=== PATIENT | female | born 2000 | race Caucasian/White ===

== ENCOUNTER 2021-11-13 15:03 | Emergency (ER) | payer BC ==
[2021-11-13] MEDS ORDERED: TYLENOL EXTRA STRENGTH 500 MG ONE (16:18)
[2021-11-13] MEDS: TYLENOL EXTRA STRENGTH 500 MG PO ONE (16:19)
[2021-11-13 16:28] LABS: Bacteria RARE /HPF (NEGATIVE); Epithelial Cells RARE /HPF (FEW); RBC 0-2 /HPF (0-2)
[2021-11-13 16:31] LABS: Appearance SLIGHTLY CLOUDY (CLEAR); Bilirubin NEGATIVE (NEGATIVE); Glucose NEGATIVE (NEGATIVE); Ketones NEGATIVE (NEGATIVE); Nitrite NEGATIVE (NEGATIVE); Ph 7.5 (5-6); Protein,Urine Dip 30 (Negative); RBC TRACE-INTACT Ery/ul (0-5); Urobilinogen 1 mg/dL (0-1)
[2021-11-13 16:32] LABS: Dipstick done @ ? MAIN LAB; Urine Cultured Indicated? YES
[2021-11-13 16:51] LABS: Absolute Neutrophil Ct (ANC) 8.55 x10^3/uL (1.4-6.9); Basophil (Absolute #) 0.05 x10^3/uL (0-0.4); Eosinophil % 0.9 % (0.00-5.0); Eosinophil (Absolute #) 0.12 x10^3/uL (0-0.5); Hematocrit 41.7 % (35-47); Hemoglobin 13.8 g/dL (12.0-16.0); Lymphocyte (Absolute #) 3.34 x10^3/uL (1.0-4.6); Lymphocytes % 26.3 % (24.0-44.0); Mean Cell Volume 85.8 fL (78-100); Mean Corpuscular Hemoglobin 28.4 pg (26-32); Mean Corpuscular Hgb Concent. 33.1 g/dL (32-36); Mean Platelet Volume 8.5 fL (7.5-11.0); Monocyte (Absolute #) 0.61 x10^3/uL (0.0-1.3); Monocytes % 4.8 % (0.0-12.0); Neutrophil % 67.3 % (36.0-66.0); Platelet Count 337 x10^3/uL (150-450); Red Blood Count 4.86 x10^6/uL (4.1-5.4); White Blood Count 12.7 x10^3/uL (4.0-10.5)
[2021-11-13 17:03] LABS: ALBUMIN 4.8 g/dL (3.5-5.0); ALKALINE PHOSPHATASE 109 U/L (38-126); ANION GAP 15.3 MEQ/L (5-15); BLOOD UREA NITROGEN 9 mg/dL (7-17); CHLORIDE 101 mmol/L (98-107); Calcium 9.5 mg/dL (8.4-10.2); Carbon Dioxide 24 mmol/L (22-30); EST GLOMERULAR FILTRATION RATE > 60.0 ML/MIN; Glucose 105 mg/dL (74-106); Potassium 4.1 mmol/L (3.5-5.1); SGOT/AST 29 U/L (14-36); SGPT/ALT 24 U/L (0-35); SODIUM 136 mmol/L (137-145); Total Protein 8.6 g/dL (6.3-8.2)
--- NOTE | 2021-11-13 17:26 | XRAY ---
Indication: Pelvic pain. Two-dimensional transabdominal pelvic sonogram performed. Comparison: None Uterus anteverted measuring 8.0 x 3.6 x 4.7 cm. No focal solid/cystic uterine mass. Endometrial stripe measures 1.1 cm. No endometrial cavity mass or fluid collection. Right ovary measures 3.9 x 2.2 x 2.8 cm and the left measures 3.6 x 1.9 x 3.3 cm. Normal perfusion bilaterally. No suspicious adnexal mass or free fluid. Impression: Prominent endometrial stripe. Correlate with patient's menstrual cycle. Remaining transabdominal pelvic sonogram is negative.
--- NOTE | 2021-11-13 17:28 | XRAY ---
Indication: Pelvic pain. Two-dimensional transvaginal pelvic sonogram performed. Comparison: None Uterus anteverted measuring 7.4 x 3.8 x 4.2 cm. Lower uterine segment demonstrates 7 mm nabothian cyst. No other focal solid/cystic uterine mass. Endometrial stripe measures 1.1 cm. No endometrial cavity mass or fluid collection. Right ovary measures 4.2 x 3.1 x 4.6 cm and the left measures 3.6 x 2.4 x 3.4 cm. Normal perfusion and follicular cysts bilaterally. Right ovary demonstrates dominant 3.2 cm cyst. No suspicious adnexal mass. Tiny cul-de-sac free fluid presumed physiologic from rupture/leaking cyst. Impression: Prominent endometrial stripe. Correlate with patient's menstrual cycle. Incidental tiny nabothian cyst and tiny physiologic cul-de-sac fluid.
--- NOTE | 2021-11-13 17:52 | ERPHSYRPT ---
- History of Present Illness Historian: patient Exam Limitations: no limitations Patient Subjective Stated Complaint: pt states that it hurts from her panty line and shoots pains to her vagina Triage Nursing Assessment: Pt brought self to the ER, tachycardic, hypertensive, rates pain as 8/10 when she is standing and 3/10 when she is sitting, pt had a HSG procedure done October 29 and states that the pain feels like she is having another procedure like that, she states that she has cysts on her ovaries, she woke up today feeling like she was having menstrual cramps and then later at work she began having diarrhea and then the pain got worse, denies pain with palpatation to the pelvic area except for right above her pubic symphisis, last period was 10/18-10/22, denies blood in urine or stool Physician History: 21 yo wf w supra-pubic pain x 2 days. pain described as "cramping" and 8/10. Pain worse w movement and upright position. She denies vaginal bleeding/dysuria/hematuria. Pt can not confirm or deny . She has never had the pain before. Pt has also had nausea/mild diarrhea. Cough/coryza/fever all denied. Timing/Duration: day(s) (2 days) Activities at Onset: rest Quality: cramping Abdominal Pain Onset Location: suprapubic Pain Radiation: no radiation Severity of Pain-Max: severe Severity of Pain-Current: severe Modifying Factors: Improves With: movement (Makes worse) Associated Symptoms: diarrhea, nausea, No back, No chest pain, No diaphoresis, No fever/chills, No fatigue, No headache, No heartburn, No loss of appetite, No neck pain, No rash, No shortness of breath, No syncope, No vomiting, No weakness Previous symptoms: no prior history Allergies/Adverse Reactions: No Known Drug Allergies Allergy (Verified 11/13/21 15:51) Hx Influenza Vaccination/Date Given: Yes Hx Pneumococcal Vaccination/Date Given: Yes Immunizations Up to Date: Yes Travel Risk - International Travel Have you traveled outside of the country in past 3 weeks: No - Coronavirus Screening Are you exhibiting any of the following symptoms?: No Close contact with a COVID-19 positive Pt in past 14-21 Days: No - Vaccine Status Have you recieved a Covid-19 vaccination: Yes 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 - Vaccination Dates Date of 2cond Vaccination (if applicable): 2021 - Review of Systems Constitutional: No Symptoms Eyes: No Symptoms Ears, Nose, & Throat: No Symptoms Respiratory: No Symptoms Cardiac: No Symptoms Abdominal/Gastrointestinal: No Symptoms, Abdominal Pain, Nausea, Diarrhea, No Vomiting Genitourinary Symptoms: No Symptoms Musculoskeletal: No Symptoms Skin: No Symptoms Neurological: No Symptoms Psychological: No Symptoms Endocrine: No Symptoms, Excessive Sweating Hematologic/Lymphatic: No Symptoms Immunological/Allergic: No Symptoms - Past Medical History Pertinent Past Medical History: Yes Other Medical History: possible pcos - Past Surgical History Past Surgical History: Yes - Social History Smoking Status: Never smoker Exposure to second hand smoke: No Drug Use: none Patient Lives Alone: No Significant Family History: no pertinent family hx - Female History Hx Now: No (trying w/fertility) - Nursing Vital Signs Nursing Vital Signs: Initial Vital Signs Pulse Rate 124 H 11/13/21 15:40 Blood Pressure 161/106 11/13/21 15:40 O2 Sat by Pulse Oximetry 97 11/13/21 15:40 Pain Scale Pain Intensity 2 Tachy/Hypertensive - Physical Exam General Appearance: no apparent distress Eye Exam: PERRL/EOMI, eyes nml inspection Ears, Nose, Throat Exam: normal ENT inspection, TMs normal, pharynx normal, moist mucous membranes Neck Exam: normal inspection, non-tender, supple, full range of motion, No meningismus, No mass, No Brudzinski, No Kernig's, No carotid bruit Respiratory Exam: normal breath sounds, lungs clear, airway intact, No respiratory distress Cardiovascular Exam: tachycardia, capillary refill <2 sec, No murmur Gastrointestinal/Abdomen Exam: soft, normal bowel sounds, tenderness (Mild to moderate supra-pubic TTP wo guarding or rebound) Extremity Exam: normal inspection, normal range of motion Neurologic Exam: alert, oriented x 3, cooperative, auto travel counselor II-XII nml as tested, normal mood/affect, nml cerebellar function, nml station & gait, sensation nml Skin Exam: normal color, warm, dry Lymphatic Exam: No adenopathy SpO2 Interpretation: normal SpO2: 98 O2 Delivery: Room Air - Course Nursing assessment & vital signs reviewed: Yes - CT Exams Abdomen/Pelvis CT Interpretation: Discussed w/radiologist (Minimal sigmoid diverticulitis/NAIDU/Normal appy) - Radiology Ultrasound Exam Pelvis Ultrasound: discussed w/radiologist (3.2cm R ovarian cyst) Ordered Tests: Active Orders 24 hr Category Date Time Status ABDOMEN AND PELVIS W/0 CONTRAS [CT] Stat Exams 11/13/21 17:46 Taken PELVIC [US] Stat Exams 11/13/21 16:16 Completed PELVIS TRANS VAGINAL [US] Stat Exams 11/13/21 16:58 Completed CBC W DIFF Stat Lab 11/13/21 16:45 Completed CMP Stat Lab 11/13/21 16:45 Completed CULTURE,URINE Stat Lab 11/13/21 16:16 Received HCG QUALITATIVE,SERUM Stat Lab 11/13/21 16:45 Completed UA W/RFX CULTURE Stat Lab 11/13/21 16:16 Completed Medication Summary Discontinued Medications Generic Name Dose Route Start Last Admin Trade Name Freq PRN Reason Stop Dose Admin Acetaminophen 1,000 mg 11/13/21 16:15 11/13/21 16:19 Acetaminophen 500 Mg Tablet PO 11/13/21 16:16 1,000 mg STAT ONE Administration Acetaminophen Confirm 11/13/21 16:18 Acetaminophen 500 Mg Tablet Administered 11/13/21 16:19 Dose 1,000 mg .ROUTE .STK-MED ONE Lab/Rad Data: Laboratory Result Diagrams 11/13/21 16:45 11/13/21 16:45 Laboratory Results 11/13/21 11/13/21 11/13/21 Range/Units 16:45 16:45 16:45 WBC 12.7 H (4.0-10.5) x10^3/uL RBC 4.86 (4.1-5.4) x10^6/uL Hgb 13.8 (12.0-16.0) g/dL Hct 41.7 (35-47) % MCV 85.8 (78-100) fL MCH 28.4 (26-32) pg MCHC 33.1 (32-36) g/dL RDW 13.0 (11.5-14.0) % Plt Count 337 (150-450) x10^3/uL MPV 8.5 (7.5-11.0) fL Gran % 67.3 H (36.0-66.0) % Immature Gran % (Auto) 0.3 (0.00-0.4) % Nucleat RBC Rel Count 0.0 (0.00-0.1) % Eos # (Auto) 0.12 (0-0.5) x10^3/uL Immature Gran # (Auto) 0.04 H (0.00-0.03) x10^3u/L Absolute Lymphs (auto) 3.34 (1.0-4.6) x10^3/uL Absolute Monos (auto) 0.61 (0.0-1.3) x10^3/uL Absolute Nucleated RBC 0.00 (0.00-0.01) x10^3u/L Lymphocytes % 26.3 (24.0-44.0) % Monocytes % 4.8 (0.0-12.0) % Eosinophils % 0.9 (0.00-5.0) % Basophils % 0.4 (0.0-0.4) % Absolute Granulocytes 8.55 H (1.4-6.9) x10^3/uL Basophils # 0.05 (0-0.4) x10^3/uL Sodium 136 L (137-145) mmol/L Potassium 4.1 (3.5-5.1) mmol/L Chloride 101 (98-107) mmol/L Carbon Dioxide 24 (22-30) mmol/L Anion Gap 15.3 H (5-15) MEQ/L BUN 9 (7-17) mg/dL Creatinine 0.60 (0.52-1.04) mg/dL Estimated GFR > 60.0 ML/MIN Glucose 105 (74-106) mg/dL Calcium 9.5 (8.4-10.2) mg/dL Total Bilirubin 0.70 (0.2-1.3) mg/dL AST 29 (14-36) U/L ALT 24 (0-35) U/L Alkaline Phosphatase 109 (38-126) U/L Serum Total Protein 8.6 H (6.3-8.2) g/dL Albumin 4.8 (3.5-5.0) g/dL Serum , Qual NEGATIVE (Negative) Urinalys Dipstick Clnc Urine Color (YELLOW) Urine Appearance (CLEAR) Urine pH (5-6) Ur Specific [place] (1.005-1.025) POC Urine Protein Conf (Negative) Urine Ketones (NEGATIVE) Urine Nitrite (NEGATIVE) Urine Bilirubin (NEGATIVE) Urine Urobilinogen (0-1) mg/dL Urine Leukocytes (NEGATIVE) Urine WBC (Auto) (0-5) /HPF Urine RBC (Auto) (0-2) /HPF U Epithel Cells (Auto) (FEW) /HPF Urine Bacteria (Auto) (NEGATIVE) /HPF Urine RBC (0-5) Chris/ul Ur Culture Indicated? Urine Glucose (NEGATIVE) mg/dL 11/13/21 Range/Units 16:16 WBC (4.0-10.5) x10^3/uL RBC (4.1-5.4) x10^6/uL Hgb (12.0-16.0) g/dL Hct (35-47) % MCV (78-100) fL MCH (26-32) pg MCHC (32-36) g/dL RDW (11.5-14.0) % Plt Count (150-450) x10^3/uL MPV (7.5-11.0) fL Gran % (36.0-66.0) % Immature Gran % (Auto) (0.00-0.4) % Nucleat RBC Rel Count (0.00-0.1) % Eos # (Auto) (0-0.5) x10^3/uL Immature Gran # (Auto) (0.00-0.03) x10^3u/L Absolute Lymphs (auto) (1.0-4.6) x10^3/uL Absolute Monos (auto) (0.0-1.3) x10^3/uL Absolute Nucleated RBC (0.00-0.01) x10^3u/L Lymphocytes % (24.0-44.0) % Monocytes % (0.0-12.0) % Eosinophils % (0.00-5.0) % Basophils % (0.0-0.4) % Absolute Granulocytes (1.4-6.9) x10^3/uL Basophils # (0-0.4) x10^3/uL Sodium (137-145) mmol/L Potassium (3.5-5.1) mmol/L Chloride (98-107) mmol/L Carbon Dioxide (22-30) mmol/L Anion Gap (5-15) MEQ/L BUN (7-17) mg/dL Creatinine (0.52-1.04) mg/dL Estimated GFR ML/MIN Glucose (74-106) mg/dL Calcium (8.4-10.2) mg/dL Total Bilirubin (0.2-1.3) mg/dL AST (14-36) U/L ALT (0-35) U/L Alkaline Phosphatase (38-126) U/L Serum Total Protein (6.3-8.2) g/dL Albumin (3.5-5.0) g/dL Serum , Qual (Negative) Urinalys Dipstick Clnc MAIN LAB Urine Color YELLOW (YELLOW) Urine Appearance SLIGHTLY CLOUDY (CLEAR) Urine pH 7.5 (5-6) Ur Specific [place] 1.020 (1.005-1.025) POC Urine Protein Conf 30 (Negative) Urine Ketones NEGATIVE (NEGATIVE) Urine Nitrite NEGATIVE (NEGATIVE) Urine Bilirubin NEGATIVE (NEGATIVE) Urine Urobilinogen 1 (0-1) mg/dL Urine Leukocytes TRACE (NEGATIVE) Urine WBC (Auto) 3-5 (0-5) /HPF Urine RBC (Auto) 0-2 (0-2) /HPF U Epithel Cells (Auto) RARE (FEW) /HPF Urine Bacteria (Auto) RARE (NEGATIVE) /HPF Urine RBC TRACE-INTACT (0-5) Chris/ul Ur Culture Indicated? YES Urine Glucose NEGATIVE (NEGATIVE) mg/dL - Progress Progress: improved Progress Note: 11/13/21 19:10 1gm po Tylenol w improvement in pain Pt refused all other pain meds during stay Counseled pt/family regarding: lab results, diagnosis, need for follow-up, rad results - Departure Departure Disposition: Home Clinical Impression: Diverticulitis Condition: Stable Critical Care Time: No Referrals: DOCTOR,NO FAMILY [Primary Care Provider] - Follow up/PCP as directed Instructions: Diverticulitis (DC) Additional Instructions: Follow up with a family MD in 1-2 days Return to ER for increasing pain or temperature greater than 100.5 Start Cipro/Flagyl Prescriptions: Ciprofloxacin HCl [Cipro] 500 mg PO BID #20 tablet Metronidazole 500 mg [Flagyl 500 MG] 500 mg PO BID #20 tablet
[2021-11-13 19:28] VITALS: BP 119/79; PULSE 109
[2021-11-14 01:06] VITALS: O2SAT 98
--- NOTE | 2021-11-14 08:40 | XRAY ---
Indication: Pelvic pain 2 days. Multiple contiguous axial images obtained through the abdomen and pelvis without contrast. Comparison: None Lung bases are clear. Heart not enlarged. Noncontrasted stomach and bowel loops appear nonobstructed. Normal appendix. Minimal sigmoid diverticulosis. Proximal sigmoid demonstrates mild pericolonic stranding favoring mild diverticulitis. No free fluid/air. Right ovary demonstrates same day ultrasound proven 3.2 cm cyst. 19.3 cm fatty hepatomegaly. Remaining liver, gallbladder, pancreas, spleen, adrenal glands, kidneys, ureters, bladder, uterus, and aorta are unremarkable for noncontrast exam. Osseous structures intact. Impression: 1. Mild sigmoid diverticulitis without complications. 2. Fatty hepatomegaly.
== END 2021-11-13 19:28 | disposition home or self-care (01) ==
LOC: ED 15:03
DX: K57.32 Diverticulitis of large intestine without perforation or abscess without bleeding (principal); R10.2 Pelvic and perineal pain; R11.0 Nausea; R19.7 Diarrhea, unspecified
CPT/HCPCS: 36415; 74176; 76830; 76856; 80053; 81015; 84703; 85025; 87086; 99283; A9270-GY